=== PATIENT | female | born 1950 | race Caucasian/White ===

== ENCOUNTER 2017-07-12 10:10 | Outpatient (CLI) | payer MEDICARE, OTHER ==
--- NOTE | 2017-07-12 16:33 | DEXA Report ---
REVISED: THIS REPORT WAS ORIGINALLY SIGNED ON 07/13/2017 @ 1126. THE REPORT WAS UNSIGNED TO REMOVE THE COLORIST DYER FLAGS. DEXA SCAN: 07/12/2017 CLINICAL INDICATION: (00:09) TECHNIQUE: Dual energy x-ray absorptiometry (DXA) was performed on a [employer] system. Regions measured are the AP spine, femoral neck, and, if needed, forearm. COMPARISON: None. In accordance with the International Society for Clinical Densitometry (ISCD) guidelines, data from previous exams may be reanalyzed using current recommendations and techniques. This is done to allow a more accurate basis for comparison with the current study. FINDINGS LUMBAR SPINE DATA: REGION BMD (g/cm/cm) T-SCORE Z-SCORE L1 0.968 -1.3 0.7 L2 1.092 -0.9 1.1 L3 1.106 -0.8 1.2 L4 1.027 -1.4 0.6 TOTAL 1.050 -1.1 0.9 NOTE: All evaluable vertebrae are used for classification. HIP DATA: REGION BMD (g/cm/cm) T-SCORE Z-SCORE Neck 0.784 -1.8 -0.1 TOTAL 0.786 -1.8 -0.2 NOTE: The femoral neck or total proximal femur, whichever is lowest, is used for classification. Lumbar spine density is 1.050 gm/sq cm. T-score is -1.1. WHO classification is osteopenia. Femoral neck density is 0.784 gm/sq cm. T-score is -1.8. WHO classification is osteopenia. IMPRESSION THE WHO CLASSIFICATION BASED ON THE INTERNATIONAL REFERENCE STANDARD: OSTEOPENIA. FRACTURE RISK: Increased RECOMMENDATION: Patients with diagnosis of osteoporosis or osteopenia should have regular bone mineral density assessment. For those eligible for Medicare, routine testing is allowed once every 2 years. Testing frequency can be increased for patients who have rapidly progressing disease or for those who are receiving medical therapy to restore bone mass. COMMENT: World Health Organization (WHO) definitions for osteoporosis and osteopenia: NORMAL BMD: T-score at -1.0 or higher, fracture risk is low. OSTEOPENIA BMD: T-score between -1.0 and -2.5, fracture risk is increased. OSTEOPOROSIS BMD: T-score at -2.5 or lower, fracture risk high. National Osteoporosis Foundation recommends: 1. Obtain adequate dietary calcium (at least 1200 mg per day) and vitamin D (400 -800 international units per day). 2. Participate, as appropriate, in regular weightbearing and muscle- strengthening exercise. 3. Avoid tobacco use and reduce alcohol and caffeine intake. 4. For more detailed information see the website at www.NOF.org. MTDD
== END 2017-07-12 10:11 | disposition home or self-care (01) ==
LOC: DI 10:10
PROVIDERS: ATTEND Internal Medicine
DX: M85.89 Other specified disorders of bone density and structure, multiple sites (principal); N95.8 Other specified menopausal and perimenopausal disorders
CPT/HCPCS: 77080

== ENCOUNTER 2017-07-14 13:19 | Outpatient (CLI) | payer MEDICARE, OTHER ==
[2017-07-14] MEDS ORDERED: ALBUTEROL NEB 2.5 MG/3 ML INH ONE (15:00)
== END 2017-07-14 13:20 | disposition home or self-care (01) ==
LOC: RT 13:19
PROVIDERS: ATTEND Internal Medicine
DX: J45.909 Unspecified asthma, uncomplicated (principal)
CPT/HCPCS: 94060; J7613

== ENCOUNTER 2017-09-20 11:33 | Day surgery (SDC) | payer MEDICARE, OTHER ==
[2017-09-20] MEDS ORDERED: LACTATED RINGERS 1,000 ML IV ONE ×2 (11:43→14:35)
[2017-09-20] MEDS ORDERED: MIDAZOLAM 2 MG/2 ML VIAL IVP ONE (13:00)
[2017-09-20] MEDS ORDERED: fentaNYL 250 MCG/5 ML VIAL IVP ONE (13:00)
[2017-09-20] MEDS ORDERED: BENZOCAINE/TETRACAINE/BUTAMBEN SPRAY 56 GM TOP ONE (13:04)
[2017-09-20 14:36] VITALS: BP 126/68
== END 2017-09-20 11:34 | disposition home or self-care (01) ==
LOC: SDS 11:33
PROVIDERS: ATTEND Surgery
PROC: 0DB78ZX Excision of Stomach, Pylorus, Via Natural or Artificial Opening Endoscopic, Diagnostic (ICD-10-PCS; 2017-09-20)
PROC: 3E0H8GC Introduction of Other Therapeutic Substance into Lower GI, Via Natural or Artificial Opening Endoscopic (ICD-10-PCS; principal; 2017-09-20 12:30)
PROC: 0DBK8ZZ Excision of Ascending Colon, Via Natural or Artificial Opening Endoscopic (ICD-10-PCS; 2017-09-20 12:30)
DX: R19.5 Other fecal abnormalities (principal); D12.2 Benign neoplasm of ascending colon; K64.4 Residual hemorrhoidal skin tags; K64.8 Other hemorrhoids; K21.9 Gastro-esophageal reflux disease without esophagitis; K25.9 Gastric ulcer, unspecified as acute or chronic, without hemorrhage or perforation; K44.9 Diaphragmatic hernia without obstruction or gangrene; J45.909 Unspecified asthma, uncomplicated; I10 Essential (primary) hypertension; F32.9 Major depressive disorder, single episode, unspecified
CPT/HCPCS: 43239; 45381; 45385; A9270; J3010; J7120

== ENCOUNTER 2019-10-24 10:09 | Outpatient (CLI) | payer MEDICARE, OTHER ==
--- NOTE | 2019-10-28 11:13 | DEXA Report ---
Reason: OSTEOPENIA Procedure Date: 10/24/2019 Accession Number: [id number] / [id number] Procedure: DEX - Dexa Spine and/or Hip CPT Code: Final Report FULL RESULT: EXAM: Dexa Spine and/or Hip DATE: 10/24/2019 10:43 AM CLINICAL HISTORY: OSTEOPENIA follow-up TECHNIQUE: Dual energy x-ray absorptiometry (DXA) was performed on a [employer] System. Regions measured are the AP Spine, femoral neck, and if needed forearm. COMPARISON: 07/12/2017. In accordance with the International Society for Clinical Densitometry (ISCD) guidelines, data from previous exams may be reanalyzed using current recommendations and techniques. This is done to allow a more accurate basis for comparison with the current study. FINDINGS: The data for the lumbar spine is as follows: BMD (g/cm/cm) T-SCORE Z-SCORE REGION L1 1.033 -0.8 1.3 L2 1.137 -0.5 1.5 L3 1.098 -0.9 1.2 L4 1.031 -1.4 0.7 TOTAL 1.073 -0.9 1.2 NOTE: All evaluable vertebrae are used for classification The data for the hip is as follows: BMD (g/cm/cm) T-SCORE Z-SCORE REGION Neck 0.781 -1.8 0.0 TOTAL 0.784 -1.8 -0.1 NOTE: The femoral neck or total proximal femur, whichever is lowest, is used for classification. DXA RESULTS SUMMARY: Spine SCAN DATE AGE BMD CHANGE VS CHANGE VS PREVIOUS PREVIOUS % 12/24/2019 [age] 1[age]073 0.023 2.2 07/12/2017 [age] 1[age]050 * Denotes significant change at the 95% confidence level. Denotes dissimilar scan types or analysis methods. DXA RESULTS SUMMARY: Hip SCAN DATE AGE BMD CHANGE VS CHANGE VS PREVIOUS PREVIOUS % 12/[birth year]2019 69.4 0.784 -0.002 -0.3 07[age]12/2017 [age] 0.786 * Denotes significant change at the 95% confidence level. Denotes dissimilar scan types or analysis methods. IMPRESSION: THE WHO CLASSIFICATION BASED ON THE INTERNATIONAL REFERENCE STANDARD IS OSTEOPENIA. THE FRACTURE RISK IS INCREASED. RECOMMENDATION: Patients with diagnosis of osteoporosis or osteopenia should have regular bone mineral density assessment. For those eligible for Medicare, routine testing is allowed once every 2 years. Testing frequency can be increased for patients who have rapidly progressing disease or for those who are receiving medical therapy to restore bone mass. COMMENT: World Health Organization (WHO) definitions for osteoporosis and osteopenia: NORMAL BMD: T-score at -1.0 or higher, fracture risk is low OSTEOPENIA BMD: T-score between -1.0 and -2.5, fracture risk is increased. OSTEOPOROSIS BMD: T-score at -2.5 or lower, fracture risk is high. National Osteoporosis Foundation recommends: 1. Obtain adequate dietary calcium (at least 1200 mg per day) and vitamin D (400-800 international units per day). 2. Participate, as appropriate, in regular weightbearing and muscle-strengthening exercise. 3. Avoid tobacco use and reduce alcohol and caffeine intake. 4. For more detailed information see the website at www.NOF.org.
== END 2019-10-24 10:10 | disposition home or self-care (01) ==
LOC: DI 10:09
PROVIDERS: ATTEND Internal Medicine
DX: M85.88 Other specified disorders of bone density and structure, other site (principal)
CPT/HCPCS: 77080

== ENCOUNTER 2019-11-06 09:33 | Outpatient (CLI) | payer MEDICARE, OTHER ==
[2019-11-06] MEDS ORDERED: GADOBUTROL 7.5 MMOL/7.5 ML VIAL ONE (09:50)
[2019-11-06] MEDS ORDERED: GADOBUTROL 7.5 MMOL/7.5 ML VIAL IVP ONE (10:37)
--- NOTE | 2019-11-06 11:23 | MRI Report ---
Reason: BILATERAL TINNITUS Procedure Date: 11/06/2019 Accession Number: [id number] / [id number] Procedure: MRI - IACS W/WO CPT Code: Final Report FULL RESULT: EXAM: MRI BRAIN AND INTERNAL AUDITORY CANAL (IAC),11/06/2019. EXAM DATE: 11/06/2019 10:55 AM. CLINICAL HISTORY: BILATERAL TINNITUS. COMPARISON: None. TECHNIQUE: Multiplanar, multisequence T1-weighted and fluid-sensitive MRI sequences of the brain and IACs were performed before and after administration of intravenous contrast. Other: None. IV Contrast: 5 mL Gadavist. FINDINGS: Parenchyma/Dura: No acute hemorrhage, mass, or acute infarct.There is scattered foci of T2 hyperintensity involving white matter of bilateral cerebral hemispheres. No abnormal enhancement. Internal Auditory Canals (IACs): Normal. No enhancing abnormality. The inner ear structure are symmetric and unremarkable. Ventricles/Cisterns: No hydrocephalus. No abnormal extra-axial fluid collection or hemorrhage. Orbits: Symmetric and unremarkable. Sella Turcica: Unremarkable. Vasculature: Normal signal flow void is seen in the major arterial structures at the skull base. The dural sinuses are patent and enhance normally. Sinuses: Mild paranasal sinus mucosal thickening. No sinus fluid levels. No acute sinus disease. Bones: No focal pathologic appearing marrow signal changes. Other: None. IMPRESSION: 1. No evidence of mass, infarct, or other acute intracranial process 2. Scattered nonspecific white matter lesions. Differential considerations include mild microvascular disease and sequela migraine. 3. Normal MR appearance of internal auditory canals. No enhancing mass or other finding to explain hearing loss. RADIA
== END 2019-11-06 09:34 | disposition home or self-care (01) ==
LOC: DI 09:33
PROVIDERS: ATTEND Internal Medicine
DX: H93.13 Tinnitus, bilateral (principal); G93.9 Disorder of brain, unspecified
CPT/HCPCS: 70543; A9585

== ENCOUNTER 2021-07-05 10:26 | Outpatient (CLI) | payer MEDICARE, OTHER ==
--- NOTE | 2021-07-06 14:49 | Mammography Report ---
BILATERAL DIGITAL SCREENING MAMMOGRAM 3D/2D: 07/05/2021 CLINICAL: Routine screening. Comparison is made to exam dated: 05/02/2016 mammogram - [facility]. The tissue of both breasts is extremely dense, which lowers the sensitivity of mammography. No significant masses, calcifications, or other findings are seen in either breast. There has been no significant interval change. IMPRESSION: NEGATIVE There is no mammographic evidence of malignancy. A 1 year screening mammogram is recommended. This exam was interpreted at Station ID: [id number]. NOTE: For mammograms, a report in lay terms will be sent to the patient. Approximately 15% of breast malignancies will not be visualized mammographically. In the management of a palpable breast mass, a negative mammogram must not discourage biopsy of a clinically suspicious lesion. Electronically Signed By: Anton thomas/geoff:07/05/2021 15:28:03 ACR BI-RADS Category 1: Negative 3341F PARENCHYMAL PATTERN: (VD) - The breast(s) demonstrate(s) extremely dense parenchyma, limiting the sen sitivity of mammography. BI-RADS CATEGORY: (1) - 1 RECOMMENDATION: (ANNUAL) - Recommend routine annual screening mammography. [id number] 1 year screening LATERALITY: (B)
== END 2021-07-05 10:27 | disposition home or self-care (01) ==
LOC: DI 10:26
PROVIDERS: ATTEND Internal Medicine
DX: Z12.31 Encounter for screening mammogram for malignant neoplasm of breast (principal)

== ENCOUNTER 2021-07-05 10:28 | Outpatient (CLI) | payer MEDICARE, OTHER ==
--- NOTE | 2021-07-05 17:05 | XRAY Report ---
PROCEDURE: Toe(s) RT INDICATIONS: PAIN OF TOE OF RIGHT FOOT TECHNIQUE: 3 views of the right great toe(s) acquired. COMPARISON: None FINDINGS: Bones: No fractures or dislocations. There is asymmetric severe joint space loss along the medial a spect of the first MTP joint with subcortical sclerosis and small marginal spurring. Very minor later al subluxation at the joint. No suspicious bony lesions. Soft tissues: No suspicious soft tissue densities. IMPRESSION: Asymmetric focal degeneration along the medial aspect of the first MTP joint. Reviewed by: Betzaida Tamayo MD on 07/05/2021 5:03 PM PST Approved by: Betzaida Tamayo MD on 07/05/2021 5:03 PM PST Station ID: [id number]
== END 2021-07-05 10:29 | disposition home or self-care (01) ==
LOC: DI 10:28
PROVIDERS: ATTEND Internal Medicine
DX: M19.071 Primary osteoarthritis, right ankle and foot (principal)

== ENCOUNTER 2021-07-05 10:29 | Outpatient (CLI) | payer MEDICARE, OTHER ==
--- NOTE | 2021-07-05 16:05 | XRAY Report ---
PROCEDURE: Chest 2 View X-Ray INDICATIONS: DYSPNEA TECHNIQUE: 2 view(s) of the chest. COMPARISON: None. FINDINGS: Surgical changes and devices: None. Lungs and pleura: Hyperinflation consistent with COPD. No pleural effusions or pneumothorax. Lungs are clear. Mediastinum: Mediastinal contours are normal. Heart size is normal. Bones and chest wall: No suspicious bony abnormalities. Soft tissues appear unremarkable. IMPRESSION: COPD. Reviewed by: Philly Red MD on 07/05/2021 4:03 PM [facility] Approved by: Philly Red MD on 07/05/2021 4:03 PM [facility] Station ID: [id number]
== END 2021-07-05 10:30 | disposition home or self-care (01) ==
LOC: DI 10:29
PROVIDERS: ATTEND Internal Medicine
DX: J44.9 Chronic obstructive pulmonary disease, unspecified (principal)

== ENCOUNTER 2021-08-16 10:28 | Day surgery (SDC) | payer MEDICARE, OTHER ==
[2021-08-16] MEDS ORDERED: LACTATED RINGERS 1,000 ML IV ONE (10:44)
[2021-08-16] MEDS ORDERED: PROPOFOL 200 MG/20 ML VIAL IVP ONE (11:12)
--- NOTE | 2021-08-16 11:29 | ANESTHESIA ---
Pre-Anesthesia VS, & Labs - Diagnosis history of polyps - Procedure colonoscopy Vital Signs: Temp Pulse Resp BP Pulse Ox 36.6 C 71 14 171/94 H 99 08/16/21 10:52 08/16/21 10:52 08/16/21 10:52 08/16/21 10:52 08/16/21 10:52 Height: 5 ft 5 in Weight (kg): 52.1 kg Body Mass Index: 19.1 BMI Classification: Healthy weight - NPO >8 hours - Is Patient ?: No Home Medications and Allergies Home Medications: Ambulatory Orders Aspirin [Vazalore] 81 mg PO DAILY 08/15/21 Mometasone/Formoterol [Dulera 100 Mcg-5 Mcg Inhaler] 8.8 gm IH BID 08/15/21 Melatonin 10 mg PO PRN PRN 08/16/21 Amitriptyline [Elavil] 10 mg PO HS PRN 09/19/17 Aspirin [Vazalore] 81 mg PO DAILY 08/15/21 Mometasone/Formoterol [Dulera 100 Mcg-5 Mcg Inhaler] 8.8 gm IH BID 08/15/21 Melatonin 10 mg PO PRN PRN 08/16/21 Allergies/Adverse Reactions: Allergies Allergy/AdvReac Type Severity Reaction Status Date / Time No Known Drug Allergies Allergy Verified 09/20/17 12:05 Anes History & Medical History - Anesthetic History Anesthesia Complications: reports: No previous complications - Medical History Cardiovascular: reports: None Pulmonary: reports: Other Gastrointestinal: reports: GERD Urinary: reports: None Musculoskeletal: reports: None Endocrine/Autoimmune: reports: None Skin: reports: None History of Cancer?: Yes (skin) - Surgical History General: reports: Appendectomy, Colonoscopy Gynecologic: reports: Endometrial ablation, Dilation and currettage, Other Orthopedic: reports: ACL reconstruction Dermatologic: reports: Skin cancer surgery Exam General: Alert, Oriented x3 Dental: WNL Mouth Opening: Greater than 4 Fingerbreadths Mallampati classification: II Thyromental Distance: greater than 6 cm Respiratory: Lungs clear Cardiovascular: Regular rate Plan Anesthesia Type: Total IV Consent for Procedure(s) Verified and Reviewed: Yes Code Status: Attempt Resuscitation ASA classification: 2-Mild systemic disease Is this case an emergency?: No
[2021-08-16] MEDS ORDERED: MIDAZOLAM 2 MG/2 ML VIAL ONE (11:31)
[2021-08-16] MEDS ORDERED: LACTATED RINGERS 700 ML IV ONE (11:52)
[2021-08-16 12:24] VITALS: BP 122/83
--- NOTE | 2021-08-16 15:20 | ANESTHESIA POST OP EVALUATION ---
Anesthesia Post Eval - Post Anesthesia Eval Vitals: Last Vital Signs Temp 36.4 C L 08/16/21 12:15 Pulse 65 08/16/21 12:15 Resp 13 08/16/21 12:15 BP 122/83 H 08/16/21 12:15 Pulse Ox 100 08/16/21 12:15 CV Function Including HR & BP: Stable Pain Control: Satisfactory Nausea & Vomiting: Negative Mental Status: Baseline Respiratory Status: Airway Patent Hydration Status: Satisfactory Anesthesia Complications: None
== END 2021-08-16 10:29 | disposition home or self-care (01) ==
LOC: SDS 10:28
PROVIDERS: ATTEND Surgery
PROC: 0DJD8ZZ Inspection of Lower Intestinal Tract, Via Natural or Artificial Opening Endoscopic (ICD-10-PCS; principal; 2021-08-16 11:30)
DX: Z12.11 Encounter for screening for malignant neoplasm of colon (principal); Z86.010 Personal history of colon polyps; K64.4 Residual hemorrhoidal skin tags; J45.909 Unspecified asthma, uncomplicated
CPT/HCPCS: 45330; J7120

== ENCOUNTER 2021-08-29 08:28 | Day surgery (SDC) | payer MEDICARE, OTHER ==
--- NOTE | 2021-08-29 08:44 | ANESTHESIA ---
Pre-Anesthesia VS, & Labs - Diagnosis screening - Procedure colonoscopy Height: 5 ft 5 in - NPO >8 hours - Is Patient ?: No - Lab Results Lab results reviewed: Yes Home Medications and Allergies Amitriptyline [Elavil] 10 mg PO HS PRN 09/19/17 Aspirin [Vazalore] 81 mg PO DAILY 08/15/21 Mometasone/Formoterol [Dulera 100 Mcg-5 Mcg Inhaler] 8.8 gm IH BID 08/15/21 Melatonin 10 mg PO PRN PRN 08/16/21 Allergies/Adverse Reactions: Allergies Allergy/AdvReac Type Severity Reaction Status Date / Time No Known Drug Allergies Allergy Verified 09/20/17 12:05 Anes History & Medical History - Anesthetic History Anesthesia Complications: reports: No previous complications Family history of Anesthesia Complications: Denies Family history of Malignant Hyperthermia: Denies - Medical History Cardiovascular: reports: None Pulmonary: reports: Other Gastrointestinal: reports: GERD Urinary: reports: None Musculoskeletal: reports: None Endocrine/Autoimmune: reports: None Skin: reports: None - Surgical History General: reports: Appendectomy, Colonoscopy Gynecologic: reports: Endometrial ablation, Dilation and currettage, Other Orthopedic: reports: ACL reconstruction Dermatologic: reports: Skin cancer surgery Exam General: Alert, Oriented x3, Cooperative Dental: WNL Mouth Openin Fingerbreadth Neck Mobility: Normal Mallampati classification: II Thyromental Distance: 4-6 cm Respiratory: Lungs clear, Normal breath sounds, No respiratory distress Cardiovascular: Regular rate Neurological: Normal speech Mental/Cognitive Status: Alert/Oriented X3, Normal for patient Cognitive Status: Within normal limits Plan Anesthesia Type: Total IV Consent for Procedure(s) Verified and Reviewed: Yes Code Status: Attempt Resuscitation ASA classification: 2-Mild systemic disease Is this case an emergency?: No
[2021-08-29] MEDS ORDERED: LACTATED RINGERS 1,000 ML IV ONE ×2 (08:50→10:05)
[2021-08-29] MEDS ORDERED: PROPOFOL 500 MG/50 ML 500 MG/50 ML VIAL ONE (09:07)
[2021-08-29] MEDS ORDERED: PROPOFOL 200 MG/20 ML VIAL IVP ONE (09:09)
[2021-08-29] MEDS ORDERED: LIDOCAINE-MPF 2% 5 ML VIAL ONE (09:09)
[2021-08-29 10:52] VITALS: BP 131/84
--- NOTE | 2021-08-29 11:48 | ANESTHESIA POST OP EVALUATION ---
Anesthesia Post Eval - Post Anesthesia Eval Vitals: Last Vital Signs Temp 36 C L 08/29/21 10:45 Pulse 65 08/29/21 10:45 Resp 16 08/29/21 10:45 BP 131/84 H 08/29/21 10:45 Pulse Ox 100 08/29/21 10:45 CV Function Including HR & BP: Stable Pain Control: Satisfactory Nausea & Vomiting: Negative Mental Status: Baseline Respiratory Status: Airway Patent Hydration Status: Satisfactory Anesthesia Complications: None
== END 2021-08-29 08:29 | disposition home or self-care (01) ==
LOC: SDS 08:28
PROVIDERS: ATTEND Surgery
PROC: 0DBK8ZZ Excision of Ascending Colon, Via Natural or Artificial Opening Endoscopic (ICD-10-PCS; 2021-08-29)
PROC: 0DBN8ZZ Excision of Sigmoid Colon, Via Natural or Artificial Opening Endoscopic (ICD-10-PCS; principal; 2021-08-29 09:30)
DX: Z12.11 Encounter for screening for malignant neoplasm of colon (principal); D12.2 Benign neoplasm of ascending colon; K63.5 Polyp of colon; K64.8 Other hemorrhoids; J45.909 Unspecified asthma, uncomplicated
CPT/HCPCS: 45380; 45385; J7120

== ENCOUNTER 2023-07-06 13:34 | Outpatient (CLI) | payer MEDICARE, OTHER ==
--- NOTE | 2023-07-06 20:57 | XRAY Report ---
PROCEDURE: Cervical Spine 2 View INDICATIONS: NECK PAIN TECHNIQUE: 3 views of the cervical spine were acquired. COMPARISON: None. FINDINGS: Bones: No acute fractures or dislocations to the C7 level. The lateral masses of C1 appear intact o n the odontoid view. No suspicious bony lesions. Multiple displaced narrowing degenerative endplate changes are seen as well as multilevel uncovertebral joint and facet hypertrophy. Soft tissues: No prevertebral soft tissue swelling. IMPRESSION: Moderate multilevel spondylosis. No acute osseous abnormality. Reviewed by: Anton Fong MD on 07/06/2023 8:55 PM PST Approved by: Anton Fong MD on 07/06/2023 8:55 PM [facility] Station ID: [id number]
== END 2023-07-06 13:35 | disposition home or self-care (01) ==
LOC: DI 13:34
PROVIDERS: ATTEND Student in an Organized Health Care Education/Training Program
DX: M47.812 Spondylosis without myelopathy or radiculopathy, cervical region (principal)